=== PATIENT | male | born 1955 | race Caucasian/White ===

== ENCOUNTER 2017-09-08 18:26 | Emergency (ER) | payer OTHER ==
[~2017-09-08] VITALS: Ht 182.9 cm; Wt 99.8 kg
[2017-09-08 19:28] LABS: ABSOLUTE BASOPHIL COUNT 0.1 /CUMM (0.0-0.2); ABSOLUTE EOSINOPHIL COUNT 0.1 /CUMM (0.0-0.7); ABSOLUTE GRANULOCYTE CT 2.9 /CUMM (1.4-6.5); ABSOLUTE LYMPH COUNT 2.9 /CUMM (1.2-3.4); ABSOLUTE MONOCYTE COUNT 0.6 /CUMM (0.10-0.60); BASOPHIL % 1.1 % (0.0-2.0); EOSINOPHIL % 1.9 % (0-5); GRANULOCYTE % 43.6 % (42.2-75.2); HEMATOCRIT 47.8 % (42-52); MEAN CORPUSCULAR HGB 33.5 PG (27.0-31.0); MEAN CORPUSCULAR HGB CONC 33.6 G/DL (33.0-37.0); MEAN CORPUSCULAR VOLUME 99.5 FL (80.0-94.0); MEAN PLATELET VOLUME 7.3 FL (7.4-10.4); PLATELET COUNT 361 /CUMM (130-400); RBC DISTRIBUTION WIDTH 13.2 % (11.5-14.5); WHITE BLOOD CELL COUNT 6.6 /CUMM (4.8-10.8)
--- NOTE | 2017-09-08 22:05 | ED PSYCHIATRIC COMPLAINT ---
See Addendum History of Present Illness General Chief Complaint: ETOH/Drug Related Complaint Stated Complaint: PT IS COMING FOR DETOX FROM ALCOHOL, [facility] Source: patient Exam Limitations: intoxication Vital Signs & Intake/Output Vital Signs & Intake/Output Vital Signs Date Time Temp Pulse Resp B/P B/P Pulse O2 O2 Flow FiO2 Mean Ox Delivery Rate 09/09 725 97.9 75 18 188/98 09/09 0726 97.9 75 18 188/98 100 Room Air 09/09 0654 84 176/86 09/09 0653 97.4 84 18 176/86 99 05/ 0555 98.5 71 20 183/88 / 0555 98.5 71 20 183/ 100 Room Air 09/09 0554 98.5 71 20 183/09/09 0554 98.5 71 20 183/88 09/09 0426 97.9 68 18 185/81 / 0417 97.9 68 18 185/81 96 / 0216 98.2 56 16 158/76 / 0202 98.2 56 16 158/76 76 / 0052 98.1 65 18 145/95 05/ 0052 98.1 65 18 145/95 97 Room Air 09/08 2230 68 134/62 09/08 2230 68 18 134/62 08 2151 68 18 110/71 09/08 2150 68 18 110/71 98 Room Air 09/08 2004 Room Air 09/08 1953 97.5 68 16 125/76 05/08 1922 97.5 68 16 125/76 98 Room Air ED Intake and Output 09/09 0000 09/08 1200 Intake Total 0 Output Total Balance 0 Intake, Oral 0 Patient 220 lb Weight Weight Reported by Patient Measurement Method Allergies Coded Allergies: No Known Allergies (09/08/17) Reconcile Medications Amlodipine Bes/Olmesartan Med (Amlodipine-Olmesartan 5-20 MG) 5 MG-20 MG TABLET BP (Reported) Escitalopram Oxalate 10 MG TABLET 1 TAB PO DAILY MENTAL HEALTH (Reported) Lorazepam 0.5 MG TABLET 1 TAB PO DAILY NEEDED ANXIETY (Reported) Triage Note: PRESENTS TO ED FOR EVALUATION OF ETOH ABUSE. REQUESTING DETOX. HAS BEEN DRINKING FOR ABOUT 35 YEARS. REPORTS DRINKING APPROXIMATELLY 8 SHOTS DAILY. LAST DRANK VODKA AT 0900 THIS AM. DENIED SEIZURES WITH PAST ATTEMPTS TO DETOX. Triage Nurses Notes Reviewed? yes HPI: Patient presents for evaluation of alcohol dependence and need for short-term rehabilitation. (Idalia GALLAGHER,Jae Calderón) Past History Travel History Traveled to [place] past 21 day No Medical History Any Pertinent Medical History? see below for history Cardiovascular: hypertension Psychiatric: ETOH ABUSE Surgical History Surgical History: non-contributory Psychosocial History What is your primary language Danish Tobacco Use: Current Daily Use Daily Tobacco Use Amount/Type: => 5 Cigarettes daily Family History Hx Contributory? No (Idalia GALLAGHER,Jae Calderón) Review of Systems Review of Systems Constitutional: Reports: no symptoms. EENTM: Reports: no symptoms. Respiratory: Reports: no symptoms. Cardiovascular: Reports: no symptoms. GI: Reports: no symptoms. Genitourinary: Reports: no symptoms. Musculoskeletal: Reports: no symptoms. Skin: Reports: no symptoms. Neurological/Psychological: Reports: see HPI. Hematologic/Endocrine: Reports: no symptoms. Immunologic/Allergic: Reports: no symptoms. All Other Systems: Reviewed and Negative (Idalia GALLAGHER,Jae Calderón) Physical Exam Physical Exam General Appearance: SEE BELOW Neurological/Psychiatric: SEE BELOW Comments: General: Alert, calm, cooperative, EtOH-like odor Head: Normocephalic, atraumatic Eyes: Normal inspection, no nystagmus, EOMI Ears: Normal inspection Nose: Normal inspection Throat: Moist mucosa Neck: Supple, no goiter Heart: Regular rate and rhythm, no murmurs rubs or gallops Lungs: Clear to auscultation bilaterally with good air entry Abdomen: Soft nontender nondistended, normal bowel sounds Chest: Nontender Extremities: Normal range of motion grossly, NO tremors present, no cyanosis clubbing or edema of the upper extremities Neurologic: cranial nerves II through XII grossly intact, speech clear, gait normal Psychiatric: No apparent delusions or hallucinations, no pressured speech or thought blocking SAD PERSONS Done? patient not suicidal (Idalia GALLAGHER,Jae Calderón) Progress Differential Diagnosis: ALCOHOL INTOXICATION, ALCOHOL DEPENDENCE, ALCOHOL WITHDRAWAL, ALCOHOL HEPATITIS, ALCOHOLIC PANCREATITIS Plan of Care: Orders Procedure Date/time Status Heart Healthy Diet 09/09 B Active URINE DRUGS OF ABUSE 09/09 704 Active URINALYSIS 09/09 704 Active CIWA 09/09 1903 Active URINE DRUG SCREEN FOR ER ONLY 09/09 1903 Active URINALYSIS 09/09 1903 Active MAGNESIUM 09/09 1903 Complete ETHANOL 09/09 1903 Complete COMPREHENSIVE METABOLIC PANEL 09/09 1903 Complete CBC WITHOUT DIFFERENTIAL 09/09 1903 Complete Current Medications Sig/Tae Start time Last Medication Dose Stop Time Status Admin Ondansetron HCl 4 MG ONCE ONE 09/09 844 UNVr (Zofran) 09/09 845 Laboratory Tests 09/08/171920: Anion Gap 15, Estimated GFR > 60, BUN/Creatinine Ratio 13.8, Glucose 73, Calcium 9.5, Magnesium 1.9, Total Bilirubin 0.8, AST 153 H, ALT 149 H, Alkaline Phosphatase 65, Total Protein 7.7, Albumin 4.6, Globulin 3.1, Albumin/Globulin Ratio 1.5, CBC w Diff NO MAN DIFF REQ, RBC 4.80, MCV 99.5 H, MCH 33.5 H, MCHC 33.6, RDW 13.2, MPV 7.3 L, Gran % 43.6, Lymphocytes % 44.1, Monocytes % 9.3, Eosinophils % 1.9, Basophils % 1.1, Absolute Granulocytes 2.9, Absolute Lymphocytes 2.9, Absolute Monocytes 0.6, Absolute Eosinophils 0.1, Absolute Basophils 0.1, Serum Alcohol 262.0 Comments: 09/09/2017 6:00:28 AM patient has had an uneventful emergency department stay but his nurse states his current CIWA score is 8. I have ordered he is usual antihypertensive medications and we will reevaluate. He wishes to go to [facility]. 09/09/2017 7:02:39 AM [facility] last CIWA score is 13. I do not feel he is a good candidate for [facility]. He unfortunately does not meet criterion for inpatient detoxification according to the emergency medicine alcohol detoxification protocol. I have explained this to him and he is willing to wait in the emergency department for another CIWA score determination for the possibility of qualifying. 09/09/2017 7:43:07 AM patient signed out to Dr. Perez at shift oil [facility]. (Idalia GALLAGHER,Jae Calderón) Departure Departure Disposition: HOME OR SELF CARE Condition: Stable Clinical Impression Primary Impression: Alcoholism Secondary Impressions: Alcoholic hepatitis Qualifiers: Ascites presence: unspecified Qualified Code: K70.10 - Alcoholic hepatitis without ascites Referrals: Cricket GALLAGHER,Benjamin Vann (PCP/Family) Additional Instructions: Report to [facility] for intake. Notify your primary care physician of this emergency department visit and treatment plan. Return if any concerns or sudden worsening. Departure Forms: Customer Survey General Discharge Information (Idalia GALLAGHER,Jae Calderón) Departure Comments 09/09/17 The patient was signed out to me by Dr. Friedman. He is pending reevaluation for alcohol detox. He did vomit in the Emergency Department. He was given Zofran and gabapentin. Labs reveal a HEPATITIS. (Jae Perez DO)
[2017-09-08] MEDS ORDERED: LORAZEPAM0.5 M1 PO (22:49)
[2017-09-08] MEDS ORDERED: AMLODIPINE-OLM1 EACH (22:49)
[2017-09-08] MEDS ORDERED: ESCITALOPRAM OX10 MG PO (22:49)
[2017-09-09 13:03] VITALS: BP 172/90
== END 2017-09-09 13:03 ==
LOC: ERH 18:26
PROVIDERS: Physician Assistant Medical
DX: F10.20 Alcohol dependence, uncomplicated (principal); K70.10 Alcoholic hepatitis without ascites; I10 Essential (primary) hypertension; F17.210 Nicotine dependence, cigarettes, uncomplicated
CPT/HCPCS: 80307; 81001; G0480; J3101